=== PATIENT | female | born 1985 | race African-American/Black ===

== ENCOUNTER 2022-12-10 20:13 | Emergency (ER) | payer MEDICAID ==
[~2022-12-10] VITALS: Ht 172.7 cm; Wt 116.0 kg
[2022-12-11 00:48] VITALS: BP 139/87
== END 2022-12-11 00:48 | disposition home or self-care (01) ==
LOC: ER 20:13
DX: S83.91XA Sprain of unspecified site of right knee, initial encounter (principal); F12.90 Cannabis use, unspecified, uncomplicated; X58.XXXA Exposure to other specified factors, initial encounter; Y93.39 Activity, other involving climbing, rappelling and jumping off; Y92.89 Other specified places as the place of occurrence of the external cause; Y99.8 Other external cause status
CPT/HCPCS: 29505; 73562